=== PATIENT | male | born 1995 | race Caucasian/White ===

== ENCOUNTER 2017-07-09 23:20 | Emergency (ER) | payer MEDICAID ==
[2017-07-09] MEDS ORDERED: Ondansetron 4 MG/2 ML SDV IVPUSH ONE (23:31)
[2017-07-09] MEDS ORDERED: Sodium Chloride 0.9% 10 ML Syringe FLUSH PRN (23:37)
[2017-07-09 23:45] VITALS: BP 136/90
[2017-07-09] MEDS ORDERED: Sodium Chloride 0.9% 1,000 ML IV SCH (23:45)
[2017-07-09] MEDS ORDERED: Sodium Chloride 0.9% 1,000 ML IV ONE (23:48)
[2017-07-10] LABS: CHLORIDE,CL 102 mmol/L (98-107); SODIUM,NA 140 mmol/L (136-145)
[2017-07-10] MEDS ORDERED: Ketorolac 30 MG/ML SDV IVPUSH ONE (00:18)
--- NOTE | 2017-07-10 00:18 | EDM.PDOC ---
ED HPI GENERAL MEDICAL PROBLEM - General Chief Complaint: Gastrointestinal Problem Stated Complaint: N/V Time Seen by Provider: 07/10/17 00:07 Source of Information: Reports: Patient History Limitations: Reports: No Limitations - History of Present Illness INITIAL COMMENTS - FREE TEXT/NARRATIVE: Patient complaining of nausea and vomiting this evening. Emesis approx every 30 minutes over 4 hours. Pain free except around time that he has emesis, then he has abdominal cramping which goes away after he throws up. Several loose stools today also. No fevers. Third episode in one year. Denies other problems at this time. No one else sick at home. Took OTC meds for loose stools as well as Meclizine. Right Abdominal Pain Score (Numeric/FACES): 0 - Related Data Allergies Allergy/AdvReac Type Severity Reaction Status Date / Time meningococcal vaccine Allergy Edema Uncoded 07/09/17 23:36 Home Meds: Home Meds Cholecalciferol (Vitamin D3) [Vitamin D3] 1,000 units PO DAILY 01/09/16 [History ] Mometasone Furoate [Nasonex Phelps] 1 spray SANTO ASDIRECTED PRN 01/09/16 [History] Past Medical History HEENT History: Reports: Allergic Rhinitis, Impaired Vision Other HEENT History: Wears glasses Cardiovascular History: Reports: None Other Cardiovascular History: Patient is unaware of cholesterol status Respiratory History: Reports: Asthma, Other (See Below) Other Respiratory History: Childhood asthma with no current inhaler use Gastrointestinal History: Reports: Gastritis, GERD Genitourinary History: Reports: Diabetic Nephropathy Musculoskeletal History: Reports: Arthritis, Fracture, Osteoarthritis Other Musculoskeletal History: Right wrist Colles' fracture on 05/09/2006, benign left distal fibular mass requiring excision as below Neurological History: Reports: Headaches, Chronic, Other (See Below) Other Neuro History: Asberger's syndrome Endocrine/Metabolic History: Reports: None Hematologic History: Reports: None Immunologic History: Reports: None Oncologic (Cancer) History: Reports: None - Infectious Disease History Infectious Disease History: Reports: Chicken Pox - Past Surgical History Head Surgeries/Procedures: Reports: None HEENT Surgical History: Reports: Oral Surgery GI Surgical History: Reports: None Male Surgical History: Reports: Circumcision Endocrine Surgical History: Reports: None Musculoskeletal Surgical History: Reports: ORIF Oncologic Surgical History: Reports: None Dermatological Surgical History: Reports: None - Past Imaging History Past Imaging History: Reports: MRI (Left ankle on 01/17/10), Ultrasound ( pelvis and abdomen on 11/09/12) Social & Family History - Tobacco Use Smoking Status *Q: Never Smoker Second Hand Smoke Exposure: No - Caffeine Use Caffeine Use: Reports: Soda (One soda per day), Tea (6 glasses of tea per day). Denies: Coffee, Energy Drinks - Alcohol Use Days Per Week of Alcohol Use: 0 (No previous DWIs, problems with alcohol abuse, etc.) Number of Drinks Per Day: 1 (Usually mixed drinks for holidays or special occasions) Total Drinks Per Week: 0 - Recreational Drug Use Recreational Drug Use: No Drug Use in Last 12 Months: No - Living Situation & Occupation Living situation: Reports: Single, with Family Occupation: Employed ED ROS GENERAL - Review of Systems Review Of Systems: See Below Constitutional: Reports: Decreased Appetite. Denies: Fever, Chills, Weakness, Diaphoresis HEENT: Reports: No Symptoms Respiratory: Reports: No Symptoms Cardiovascular: Reports: No Symptoms GI/Abdominal: Reports: Abdominal Pain, Diarrhea, Decreased Appetite, Nausea, Vomiting. Denies: Black Stool, Bloody Stool, Difficulty Swallowing, Distension : Reports: No Symptoms Musculoskeletal: Reports: No Symptoms Skin: Reports: No Symptoms Neurological: Reports: No Symptoms Psychiatric: Reports: No Symptoms Hematologic/Lymphatic: Reports: No Symptoms ED EXAM, GI/ABD - Physical Exam Exam: See Below Exam Limited By: No Limitations General Appearance: Alert, WD/WN, No Apparent Distress Eyes: Bilateral: Normal Appearance, EOMI Ears: Normal External Exam, Normal Canal Nose: Normal Inspection Throat/Mouth: Normal Inspection, Normal Voice, No Airway Compromise Head: Atraumatic, Normocephalic Neck: Normal Inspection, Non-Tender, Full Range of Motion. No: Lymphadenopathy (L), Lymphadenopathy (R) Respiratory/Chest: No Respiratory Distress, Lungs Clear, Normal Breath Sounds, No Accessory Muscle Use, Chest Non-Tender Cardiovascular: No Edema, No Murmur, Tachycardia GI/Abdominal Exam: Normal Bowel Sounds, Soft, Non-Tender, No Distention. No: Distended, Guarding, Rigid, Rebound, Tender (Male) Exam: Deferred Rectal (Males) Exam: Deferred Back Exam: Normal Inspection. No: CVA Tenderness (L), CVA Tenderness (R) Extremities: Normal Inspection, Normal Range of Motion, Non-Tender, No Pedal Edema, Normal Capillary Refill Neurological: Alert, Oriented, Normal Cognition, Normal Gait, No Motor/Sensory Deficits Psychiatric: Normal Affect, Normal Mood, Other Skin Exam: Warm, Dry, Intact, Normal Color Course - Vital Signs Last Recorded V/S: Last Vital Signs Temp 36.5 C 07/09/17 23:24 Pulse 120 H 07/09/17 23:35 Resp 20 07/09/17 23:35 BP 136/90 07/09/17 23:35 Pulse Ox 98 07/09/17 23:35 - Orders/Labs/Meds Labs: Laboratory Tests 07/09/17 07/09/17 Range/Units 23:40 23:40 WBC 16.4 H (4.0-10.2) K/uL RBC 5.85 H (4.33-5.41) M/uL Hgb 16.9 H (13.1-16.8) g/dL Hct 48.7 (39.0-49.0) % MCV 83.2 L (84.0-98.0) fL MCH 28.9 (28.2-33.3) pg MCHC 34.7 (31.7-36.0) g/dL RDW 12.9 (11.2-14.1) % Plt Count 193 D (150-350) K/uL Neut % (Auto) 91.0 H (45.0-80.0) % Lymph % (Auto) 2.6 L (10.0-50.0) % [place] % (Auto) 6.1 (2.0-14.0) % Eos % (Auto) 0.2 (0.0-5.0) % Baso % (Auto) 0.1 (0.0-2.0) % Neut # (Auto) 14.97 H (1.40-7.00) K/uL Lymph # (Auto) 0.42 L (0.50-3.50) K/uL [place] # (Auto) 1.00 (0.00-1.00) K/uL Eos # (Auto) 0.03 (0.00-0.50) K/uL Baso # (Auto) 0.02 (0.00-0.20) K/uL Sodium 140 (136-145) mmol/L Potassium 3.8 (3.5-5.1) mmol/L Chloride 102 (98-107) mmol/L Carbon Dioxide 24.1 (21.0-32.0) mmol/L BUN 12 (7-18) mg/dL Creatinine 0.74 (0.51-1.17) mg/dL Est Cr Clr Drug Dosing 171.86 mL/min Estimated GFR (MDRD) > 60 mL/min Glucose 123 H (74-106) mg/dL Calcium 9.5 (8.5-10.1) mg/dL Total Bilirubin 0.5 (0.2-1.0) mg/dL AST 20 (15-37) U/L ALT 35 (12-78) U/L Alkaline Phosphatase 84 (46-116) IU/L Total Protein 8.8 H (6.4-8.2) g/dL Albumin 4.2 (3.4-5.0) g/dL Meds: Medications Discontinued Medications Generic Name Dose Route Start Last Admin Trade Name Freq PRN Reason Stop Dose Admin Sodium Chloride 1,000 mls @ 75 mls/hr 07/09/17 23:45 Normal Saline IV ASDIRECTED GRACE Sodium Chloride 1,000 mls @ 999 mls/hr 07/09/17 23:48 07/09/17 23:57 Normal Saline IV 07/10/17 00:48 999 mls/hr ONETIME ONE Administration Ketorolac Tromethamine 30 mg 07/10/17 00:18 07/10/17 00:33 Toradol IVPUSH 07/10/17 00:19 30 mg ONETIME ONE Administration Ondansetron HCl 4 mg 07/09/17 23:31 07/09/17 23:54 Zofran IVPUSH 07/09/17 23:32 4 mg ONETIME ONE Administration Sodium Chloride 10 ml 07/09/17 23:37 07/09/17 23:57 Saline Flush FLUSH 10 ml ASDIRECTED PRN Administration Keep Vein Open - Radiology Interpretation Free Text/Narrative:: Abdominal film does not suggest perforation or obstruction - Re-Assessments/Exams Free Text/Narrative Re-Assessment/Exam: 07/10/17 00:28 Elevated WBC noted with Hgb elevated. Chemistry overall unremarkable. No UA obtained as of yet. Abdomen soft. Patient is currently pain-free and very chatty. Given IV NS as well as Zofran. Toradol later added. Suspect acute gastroenteritis, likely viral. However family is concerned that he has had three of these episodes in one year and wonder if something else is an issue. Recommended that they follow up with their primary provider and discuss plan if additional episodes are noted and if additional testing or referral are needed. Did recommend trying to eliminate dairy/wheat for a few months if they have concerns of food intolerance as these are most common triggers. No trigger food has been identified by family/patient. Patient discharged after IV bolus. No observed emesis or other acute problems. Patient remained talkative and very interactive with staff throughout stay. Departure - Departure Time of Disposition: 01:30 Disposition: Home, Self-Care 01 Condition: Good Clinical Impression: Gastroenteritis - Discharge Information Instructions: Viral Gastroenteritis, Adult, [id number] Referrals: Andrés Danielson PA [Primary Care Provider] - Forms: ED Department Discharge Additional Instructions: Follow up as needed. Stay hydrated. Consider elimination diet if you think that there is a food intolerance problem affecting you. Most common gut triggers are wheat/gluten and dairy. Wheat is also a trigger in asthma and ulcers which you have had issues with so this may be a good place to start.
== END 2017-07-10 01:45 | disposition home or self-care (01) ==
LOC: LL.ED 23:20
DX: K52.9 Noninfective gastroenteritis and colitis, unspecified (principal); K21.9 Gastro-esophageal reflux disease without esophagitis; Z79.899 Other long term (current) drug therapy; Z88.7 Allergy status to serum and vaccine
CPT/HCPCS: 36415; 74019; 80053; 85025; 96361; 96374; 96375; 99284; J1885; J2405; J7030; J7050